=== PATIENT | female | born 1950 | race Caucasian/White ===

== ENCOUNTER 2018-10-26 11:29 | Outpatient (CLI) | payer MEDICARE, BC | END 2018-10-26 11:30 | disposition home or self-care (01) | LOC: BICMAMMO 11:29 | PROVIDERS: ATTEND Internal Medicine | DX: Z12.31 Encounter for screening mammogram for malignant neoplasm of breast (principal); R92.1 Mammographic calcification found on diagnostic imaging of breast | CPT/HCPCS: 77063; 77067 ==

== ENCOUNTER 2022-11-05 08:00 | Outpatient (CLI) | payer MEDICARE, BC | END 2022-11-05 08:01 | disposition home or self-care (01) | LOC: PET 08:00 | PROVIDERS: ATTEND Psychiatry & Neurology Neurology | DX: F03.B18 Unspecified dementia, moderate, with other behavioral disturbance (principal) | CPT/HCPCS: 78803; A9552 ==

== ENCOUNTER 2022-11-10 10:50 | Outpatient (CLI) | payer MEDICARE, BC | END 2022-11-10 10:51 | disposition home or self-care (01) | LOC: MRI 10:50 | PROVIDERS: ATTEND Psychiatry & Neurology Neurology | DX: F03.B18 Unspecified dementia, moderate, with other behavioral disturbance (principal); I67.82 Cerebral ischemia; Z86.79 Personal history of other diseases of the circulatory system | CPT/HCPCS: 70551 ==